=== PATIENT | male | born 1990 | race Two or more races ===

== ENCOUNTER 2018-07-08 14:36 | Emergency (ER) | payer OTHER ==
[~2018-07-08] VITALS: Ht 177.8 cm; Wt 70.3 kg
== END 2018-07-08 16:56 | disposition home or self-care (01) ==
LOC: ER 14:36
DX: S13.4XXA Sprain of ligaments of cervical spine, initial encounter (principal); S30.0XXA Contusion of lower back and pelvis, initial encounter; S60.212A Contusion of left wrist, initial encounter; V49.9XXA Car occupant (driver) (passenger) injured in unspecified traffic accident, initial encounter; Y93.89 Activity, other specified; Y92.488 Other paved roadways as the place of occurrence of the external cause; Y99.8 Other external cause status

== ENCOUNTER 2018-09-19 13:35 | Emergency (ER) | payer OTHER ==
[~2018-09-19] VITALS: Ht 177.8 cm; Wt 67.1 kg
== END 2018-09-19 19:54 | disposition home or self-care (01) ==
LOC: ER 13:35
DX: J31.2 Chronic pharyngitis (principal); M54.89 Other dorsalgia

== ENCOUNTER 2019-12-29 21:08 | Emergency (ER) | payer OTHER ==
[~2019-12-29] VITALS: Ht 177.8 cm; Wt 68.9 kg
== END 2019-12-29 22:17 | disposition home or self-care (01) ==
LOC: ER 21:08
DX: S61.350A Open bite of right index finger with damage to nail, initial encounter (principal); W54.0XXA Bitten by dog, initial encounter; Y93.89 Activity, other specified; Y92.89 Other specified places as the place of occurrence of the external cause; Y99.8 Other external cause status

== ENCOUNTER 2021-01-26 21:49 | Emergency (ER) | payer OTHER ==
[~2021-01-26] VITALS: Ht 177.8 cm; Wt 67.1 kg
[2021-01-26] MEDS ORDERED: PROAIR HFA8.5 GM (22:19)
[2021-01-27] MEDS ORDERED: ZITHROMAX200 MG PO (00:29)
== END 2021-01-27 01:56 | disposition home or self-care (01) ==
LOC: ER 21:49
DX: B34.9 Viral infection, unspecified (principal); B96.0 Mycoplasma pneumoniae [M. pneumoniae] as the cause of diseases classified elsewhere; R06.02 Shortness of breath; Z03.818 Encounter for observation for suspected exposure to other biological agents ruled out

== ENCOUNTER → 2021-01-27 | Outpatient (CLI) | payer OTHER ==
[~2021-01-27] MED LIST: PROAIR HFA8.5 GM; ZITHROMAX200 MG PO
== END | disposition home or self-care (01) ==
LOC: ASH CLINIC 13:00
PROVIDERS: ATTEND General Practice
DX: Z23 Encounter for immunization (principal); U07.1 COVID-19

== ENCOUNTER 2021-02-12 10:55 | Emergency (ER) | payer OTHER ==
[~2021-02-12] VITALS: Ht 177.8 cm; Wt 67.6 kg
== END 2021-02-12 15:20 | disposition home or self-care (01) ==
LOC: ER 10:55
DX: U07.1 COVID-19 (principal); B34.9 Viral infection, unspecified

== ENCOUNTER 2021-05-17 15:45 | Emergency (ER) | payer OTHER ==
[~2021-05-17] VITALS: Ht 177.8 cm; Wt 68.9 kg
[2021-05-17] MEDS ORDERED: MONDOXYNE NL100 MG PO (19:13)
== END 2021-05-17 20:19 | disposition home or self-care (01) ==
LOC: ER 15:45
DX: S91.341A Puncture wound with foreign body, right foot, initial encounter (principal); W45.8XXA Other foreign body or object entering through skin, initial encounter; Y93.89 Activity, other specified; Y92.89 Other specified places as the place of occurrence of the external cause; Y99.8 Other external cause status; U07.1 COVID-19

== ENCOUNTER 2021-09-05 19:15 | Emergency (ER) | payer OTHER ==
[~2021-09-05] VITALS: Ht 177.8 cm; Wt 67.6 kg
[~2021-09-05 19:15] MED LIST changes: +MONDOXYNE NL100 MG PO
== END 2021-09-05 21:42 | disposition home or self-care (01) ==
LOC: ER 19:15
DX: R53.1 Weakness (principal); Z20.822 Contact with and (suspected) exposure to COVID-19

== ENCOUNTER 2022-01-01 01:45 | Emergency (ER) | payer OTHER ==
[~2022-01-01] VITALS: Ht 177.8 cm; Wt 68.9 kg
[2022-01-01] MEDS ORDERED: PEPCID40 MG PO (05:08)
[2022-01-01] MEDS ORDERED: ONDANSETRON ODT4 MG PO (05:09)
== END 2022-01-01 05:13 ==
LOC: ER 01:45
DX: R10.13 Epigastric pain (principal)

== ENCOUNTER 2022-06-22 01:52 | Emergency (ER) | payer OTHER ==
[~2022-06-22] VITALS: Ht 177.8 cm; Wt 73.5 kg
[~2022-06-22 01:52] MED LIST changes: +ONDANSETRON ODT4 MG PO; +PEPCID40 MG PO
[2022-06-22] MEDS ORDERED: ORPHENADRINE C100 MG PO (05:47)
[2022-06-22] MEDS ORDERED: KETO10TA2 PO (05:47)
== END 2022-06-22 06:07 ==
LOC: ER 01:52
DX: S09.90XA Unspecified injury of head, initial encounter (principal); W19.XXXA Unspecified fall, initial encounter; Y93.61 Activity, american tackle football; Y92.832 Beach as the place of occurrence of the external cause; Y99.9 Unspecified external cause status; S19.9XXA Unspecified injury of neck, initial encounter

== ENCOUNTER 2022-07-16 14:58 | Emergency (ER) | payer OTHER ==
[~2022-07-16] VITALS: Ht 177.8 cm; Wt 73.5 kg
[~2022-07-16 14:58] MED LIST changes: +KETO10TA2 PO; +ORPHENADRINE C100 MG PO
[2022-07-16] MEDS ORDERED: DICY20TA PO (17:52)
[2022-07-16] MEDS ORDERED: PEPCID AC20 MG PO (17:52)
== END 2022-07-16 18:09 | disposition home or self-care (01) ==
LOC: ER 14:58
DX: R10.9 Unspecified abdominal pain (principal)

== ENCOUNTER 2022-09-09 19:56 | Emergency (ER) | payer OTHER ==
[~2022-09-09] VITALS: Ht 177.8 cm; Wt 72.6 kg
[~2022-09-09 19:56] MED LIST changes: +DICY20TA PO; +PEPCID AC20 MG PO
[2022-09-09] MEDS ORDERED: CARAFATE1 GM PO (21:34)
== END 2022-09-09 22:09 | disposition home or self-care (01) ==
LOC: ER 19:56
DX: K29.70 Gastritis, unspecified, without bleeding (principal)

== ENCOUNTER 2023-04-01 17:11 | Emergency (ER) | payer OTHER ==
[~2023-04-01] VITALS: Ht 175.3 cm; Wt 81.6 kg
[~2023-04-01 17:11] MED LIST changes: +CARAFATE1 GM PO
[2023-04-01 18:18] LABS: HEMATOCRIT 42.4 % (39.0-48.0); HEMOGLOBIN 14.6 g/dL (13-16.00); MEAN CELL VOLUME 86.9 fL (80.0-100.00); MEAN CORPUSCULAR HEMOGLOBIN 29.9 pg (27.00-32.0); MEAN CORPUSCULAR HGB CONC 34.4 g/dl (32.0-36.0); PLATELET COUNT 224 K/uL (150-450); RED BLOOD COUNT 4.89 M/uL (4.00-6.00); RED CELL DISTRIBUTION WIDTH 13.1 % (11.5-14.5)
[2023-04-01 18:37] LABS: INR 1.04; PARTIAL THROMBOPLASTIN TIME 27.6 SECONDS (22.0-34.0); PROTHROMBIN TIME 10.9 SECONDS (9.0-11.5)
[2023-04-01 18:43] LABS: CALCIUM 8.8 mg/dL (8.5-10.1); CREATININE SERUM 1.07 mg/dL (0.70-1.30); GFR 81.15; POTASSIUM 3.77 mEq/L (3.5-5.1)
[2023-04-01 18:44] LABS: PH,URINE 6.5 (5.0-8.0); URINE APPEARANCE Clear; URINE BILIRRUBIN Negative (NEGATIVE); URINE BLOOD Negative; URINE COLOR Yellow; URINE GLUCOSE Negative (NEGATIVE); URINE LEUKOCYTE Negative; URINE NITRATE Negative; URINE PROTEIN Negative (NEGATIVE)
[2023-04-01 18:49] LABS: URINE EPITHELIAL CELLS 0.7 uL (0.0-38.8); URINE RBC 1.4 uL (0.0-20.8); URINE WBC 0.4 uL (0.0-23.2)
[2023-04-01] MEDS ORDERED: DOLOGEN CAPLET1 EACH PO (19:45)
== END 2023-04-01 20:02 | disposition home or self-care (01) ==
LOC: ER 17:12
PROVIDERS: Nurse Practitioner Family
DX: R53.81 Other malaise (principal); M94.0 Chondrocostal junction syndrome [Tietze]; Z20.822 Contact with and (suspected) exposure to COVID-19

== ENCOUNTER 2023-07-22 19:58 | Emergency (ER) | payer OTHER ==
[~2023-07-22] VITALS: Ht 177.8 cm; Wt 90.7 kg
[~2023-07-22 19:58] MED LIST changes: +DOLOGEN CAPLET1 EACH PO
[2023-07-22 20:51] LABS: HEMATOCRIT 41.4 % (39.0-48.0); HEMOGLOBIN 14.3 g/dL (13-16.00); MEAN CELL VOLUME 84.9 fL (80.0-100.00); MEAN CORPUSCULAR HEMOGLOBIN 29.3 pg (27.00-32.0); MEAN CORPUSCULAR HGB CONC 34.5 g/dl (32.0-36.0); PLATELET COUNT 239 K/uL (150-450); RED BLOOD COUNT 4.88 M/uL (4.00-6.00); RED CELL DISTRIBUTION WIDTH 13.5 % (11.5-14.5)
[2023-07-22 21:11] LABS: CALCIUM 9.2 mg/dL (8.5-10.1); CREATININE SERUM 1.16 mg/dL (0.70-1.30); GFR 73.43; POTASSIUM 3.99 mEq/L (3.5-5.1)
== END 2023-07-22 21:44 | disposition home or self-care (01) ==
LOC: ER 19:59
PROVIDERS: General Practice
DX: K21.9 Gastro-esophageal reflux disease without esophagitis (principal)

== ENCOUNTER → 2023-09-11 | Emergency (ER) | payer OTHER ==
[~2023-09-11] VITALS: Ht 177.8 cm; Wt 79.8 kg
== END | disposition left against medical advice (07) ==
LOC: ER 20:55
DX: Z53.21 Procedure and treatment not carried out due to patient leaving prior to being seen by health care provider (principal)